=== PATIENT | female | born 1950 | race Caucasian/White ===

== ENCOUNTER 2017-08-02 07:10 | Emergency (ER) | payer OTHER ==
[~2017-08-02] VITALS: Ht 170.2 cm; Wt 89.4 kg
--- NOTE | ~2017-08-02 | EKG ---
[place] [address] [facility] [place] [address] ELECTROCARDIOGRAM REPORT Name: TOMMY RYAN [id number] Admission: 08/02/17 Attend Phys: Discharge: 08/02/17 Date of : 46 Report #: [id number] THIS REPORT FOR: //name// [facility] ED Test Date: 2017-08-02 Test Time: 07:50:38 Pat Name: TOMMY RYAN Department: Room: Gender: F Wrapping Checker: HOLLI : 1950 Requested By: Armando Sorensen Order Number: [id number] MD: Johny Davis Measurements Intervals [place] Rate: 77 P: 54 CO: 181 QRS: -8 QRSD: 88 T: 7 QT: 383 QTc: 434 Interpretive Statements Sinus rhythm Borderline T abnormalities, anterior leads Baseline wander in lead(s) V4 Compared to ECG 06/14/2014 14:47:19 No significant change was found Electronically Signed On 08-02-2017 14:25:39 [employer] TECHNICIAN by Johny Davis [email or web address] <ELECTRONICALLY SIGNED> By: Johny Davis MD, [facility] 08/02/17 1425 0750 0750 Johny Davis MD, [facility] /EPI
[~2017-08-02 07:10] MED LIST: ALDACTONE50 MG PO; ASA5UEC PO; ATENOLOL 100MG100 MG PO; METFORMIN HCL500 MG PO; NORCO 5-325 TA1 EACH PO; PRILOSEC20 MG PO; PRINIVIL20 MG PO; TRILIPIX135 MG PO; VITAMIN D3 PO; VITAMIN E400 UNIT PO; ZOCOR20 MG PO; ZOFRAN ODT4 MG PO
[2017-08-02] MEDS ORDERED: REGLAN 10 MG TA10 MG PO (07:34)
[2017-08-02 07:57] LABS: HEMATOCRIT 38.4 % (37.0-47.0); HEMOGLOBIN 12.7 gm/dL (12.0-15.0); MCH 29.5 pg (26.0-34.0); MCHC 33.1 g/dL (28.0-37.0); MCV 89.1 fL (80.0-100.0); PLATELET COUNT 300 thou/uL (150-400); RBC 4.31 mil/uL (4.20-5.00); RDW 13.1 % (10.5-14.5); WBC 6.5 thou/uL (4.0-11.0)
[2017-08-02 07:58] LABS: MANUAL DIFF YES
[2017-08-02 08:07] LABS: ANION GAP 10 mmol/L (7-16); BUN 21 mg/dL (7-18); CALCIUM 9.4 mg/dL (8.5-10.1); CHLORIDE 99 mmol/L (98-107); CO2 26 mmol/L (21-32); CREATININE 1.3 mg/dL (0.6-1.0); GLUCOSE 138 mg/dL (74-106); POTASSIUM 4.2 mmol/L (3.5-5.1); SODIUM 135 mmol/L (136-145)
[2017-08-02 08:15] LABS: TROPONIN-I < 0.04 ng/mL (<0.06)
[2017-08-02 08:16] LABS: URINE BILIRUBIN NEGATIVE (Negative); URINE BLOOD NEGATIVE (Negative); URINE COLOR YELLOW; URINE GLUCOSE-RANDOM* NEGATIVE (Negative); URINE KETONES NEGATIVE (Negative); URINE LEUKOCYTES-REFLEX NEGATIVE (Negative); URINE PROTEIN (DIPSTICK) NEGATIVE (Negative); URINE SPECIFIC GRAVITY <= 1.005 (1.003-1.035); URINE UROBILINOGEN 0.2 E.U./dl (0.2-1.0)
[2017-08-02 08:33] LABS: ABSOLUTE NEUTROPHILS 2.4 thou/uL (1.4-8.2); ATYPICAL LYMPHS 6 %; TOTAL CELL COUNT 100
[2017-08-02 08:34] LABS: ANISOCYTOSIS SLIGHT
[2017-08-02] MEDS ORDERED: SENNA-DOCUSATE1 EACH PO (10:38)
[2017-08-02] MEDS ORDERED: NAPROSYN500 MG PO (10:38)
[2017-08-02] MEDS ORDERED: NORCO 5-325 TA1 EACH PO (10:38)
== END 2017-08-02 10:49 | disposition home or self-care (01) ==
LOC: ER 07:10
PROVIDERS: Emergency Medicine
DX: I10 Essential (primary) hypertension (principal); K21.9 Gastro-esophageal reflux disease without esophagitis; E78.5 Hyperlipidemia, unspecified; E78.00 Pure hypercholesterolemia, unspecified; E11.9 Type 2 diabetes mellitus without complications; Z90.710 Acquired absence of both cervix and uterus; Z87.442 Personal history of urinary calculi; Z88.8 Allergy status to other drugs, medicaments and biological substances

== ENCOUNTER → 2017-08-19 | Outpatient (CLI) | payer OTHER ==
[~2017-08-19] MED LIST changes: +NAPROSYN500 MG PO; +REGLAN 10 MG TA10 MG PO; +SENNA-DOCUSATE1 EACH PO
== END ==
LOC: RAD 00:32
DX: Z12.31 Encounter for screening mammogram for malignant neoplasm of breast (principal)

== ENCOUNTER → 2018-08-20 | Outpatient (CLI) | payer OTHER | LOC: RAD 01:24 | DX: Z12.31 Encounter for screening mammogram for malignant neoplasm of breast (principal) ==

== ENCOUNTER → 2018-08-24 | Outpatient (CLI) | payer OTHER | LOC: ULTRA 10:32 | DX: N63.23 Unspecified lump in the left breast, lower outer quadrant (principal) ==

== ENCOUNTER → 2019-03-21 | Outpatient (CLI) | payer OTHER | LOC: ULTRA 01:14 | DX: N60.02 Solitary cyst of left breast (principal); Z88.8 Allergy status to other drugs, medicaments and biological substances ==

== ENCOUNTER → 2019-08-10 | Outpatient (CLI) | payer OTHER ==
[~2019-08-10] VITALS: Ht 170.2 cm; Wt 86.2 kg
[~2019-08-10] MED LIST changes: +ASA81BEC PO; +JARDIANCE10 MG PO; +OMEPRAZOLE40 MG PO; +VITAMIN D22000 UNIT PO
--- NOTE | 2019-08-11 20:06 | PATH ---
[facility] [place] [address] PATHOLOGY RPT PROCEDURE Name: ROSALIND RYAN I Room #: [facility] M.R.#: [id number] Admission: 08/10/19 Date of : 46 Discharge: Report #: [id number] Path Case #: [id number] [facility] Accession Number: [id number] . 01 Material submitted: . PART A: ileo-cecal valve - POLYP AT ILEOCECAL VALVE X2 PART B: colon - POLYP AT DESCENDING COLON X2. Modifiers: descending PART C: colon - POLYP AT SIGMOID X2. Modifiers: sigmoid . 01 Clinical history: . Screening . 02 Diagnosis: A. Polyp x2, ileocecal valve, endoscopic biopsy: - Inflammatory polyps with reactive hyperplastic changes. - Negative for dysplasia. . B. Polyp x2, at descending colon, endoscopic biopsy: - Inflammatory polyps with reactive hyperplastic changes. - Negative for dysplasia. . C. Polyp x2, at sigmoid, endoscopic biopsy: - Inflamed hyperplastic polyps. - Negative for dysplasia or malignancy. (IUV:sujata; 08/11/2019) QMS 08/11/2019 1330 Local . 02 Electronically signed: . Amalia Bills MD, Pathologist NPI- [id number] . 01 Gross description: . A. Received in formalin labeled "Valencia, Rosalind, polyp at ileo-cecal valve," and additionally labeled on the requisition as "x2," are 5 segments of mcintosh soft tissue measuring 1.0 x 0.9 x 0.4 cm in aggregate dimensions and ranging from 0.3 to 0.5 cm in maximum dimension. The specimen is submitted entirely in cassette A1. . B. Received in formalin labeled "Valencia, Rosalind, polyp at descending colon," and additionally labeled on the requisition as "x2," are 3 segments of mcintosh soft tissue measuring 0.9 x 0.9 x 0.3 cm in aggregate dimensions and ranging from 0.3 to 0.5 cm in maximum dimension. The specimen is submitted entirely in cassette B1. . C. Received in formalin labeled "Valencia, Rosalind, polyp at sigmoid colon," and additionally labeled on the requisition as "x2," is a 1.0 x 0.8 x 0.5 cm polypoid piece of mcintosh soft tissue. The margin is inked and [address] [address] PATHOLOGY RPT PROCEDURE Name: ROSALIND RYAN I Room #: [facility] Maggie#: [id number] Admission: 08/10/19 Date of : 46 Discharge: Report #: [id number] Path Case #: [id number] the tissue is sectioned perpendicular to the margin and submitted entirely in cassette C1. Additionally received in the same container are 2 segments of mcintosh soft tissue measuring 0.8 x 0.3 x 0.2 cm in aggregate dimensions and ranging from 0.3 to 0.5 cm maximum dimensions. The specimen is submitted entirely in cassette C2. (TSD; 08/10/2019) TOB/TOB 08/10/2019 1950 Local . 02 Pathologist provided ICD-10: K63.5 . 02 CPT . 690504, 312354, 615280 Specimen Comment: A courtesy copy of this report has been sent to [phone] Specimen Comment: [phone] Specimen Comment: Report sent to / DR PHELAN Performed at: 01 [facility] [address] [place] [address], [place] [id number] MD Bon Machado MD Phone: [phone] Performed at: [address] [id number] MD Amalia Bills MD Phone: [phone]
--- NOTE | 2019-08-15 11:57 | P ---
[facility] [address] [place] [address] PROCEDURE REPORT Name: TOMMY RYAN I Room #: [facility].#: [id number] Admission: 08/10/19 Attend Phys: Jean-Paul Cheng Discharge: Date of : 46 Report #: [id number] THIS REPORT FOR: //name// CC: Jean-Paul Kern MD DATE OF SERVICE: 08/10/2019 PROCEDURE PERFORMED: Colonoscopy with polypectomies. HISTORY OF PRESENT ILLNESS: The patient is a 69-year-old female who presents today for routine screening colonoscopy, last colonoscopy 10 years ago and reportedly normal. She denies any symptoms. No family history of colon cancer. DESCRIPTION OF PROCEDURE: The risks and benefits of the procedure were explained to the patient, those risks including but not limited to bleeding, perforation and the risk of sedation. She understood these risks and gave informed consent. Sedation was given using propofol per anesthesia. Next, a digital rectal exam was initially performed, which was normal. Next, using a standard Olympus colonoscope, the scope was placed in the patient's anus and advanced under direct vision to the cecum. The overall prep was good. The cecum was normal in appearance. On the ileocecal valve, two 4-5 mm sessile polyps were noted. These were removed by cold forceps. The ascending and transverse colon were normal. In the descending colon, two 4 mm sessile polyps were also noted and removed by cold forceps. In the sigmoid colon, a few scattered diverticula were noted also, two more polyps were noted. The smaller was 4 mm, removed by cold forceps and the larger was 6 mm and removed by snare cautery. The rectal mucosa was normal. On retroflexion, small nonbleeding internal hemorrhoids were noted, otherwise normal colonoscopy. The scope was then withdrawn and the procedure terminated. The patient tolerated the procedure well. IMPRESSION: 1. Multiple colonic polyps as described above. 2. Sigmoid diverticulosis. 3. Internal hemorrhoids. 4. Otherwise, normal colonoscopy. RECOMMENDATIONS: 1. Await biopsy results. 2. Repeat colonoscopy in [address] [address] PROCEDURE REPORT Name: CONNORTOMMY I [facility] [id number] Admission: 08/10/19 Attend Phys: Jean-Paul Cheng Discharge: Date of : 46 Report #: [id number] Thank you for allowing me to participate in her care. <ELECTRONICALLY SIGNED> By: Jean-Paul Burnham MD 08/15/19 1157 1043 1112 Jean-Paul Burnham MD /nt
== END | disposition home or self-care (01) ==
LOC: GI 08:21
DX: Z12.11 Encounter for screening for malignant neoplasm of colon (principal); K51.40 Inflammatory polyps of colon without complications; K57.30 Diverticulosis of large intestine without perforation or abscess without bleeding; K64.8 Other hemorrhoids; I10 Essential (primary) hypertension; E78.00 Pure hypercholesterolemia, unspecified; K21.9 Gastro-esophageal reflux disease without esophagitis; E11.9 Type 2 diabetes mellitus without complications; Z98.890 Other specified postprocedural states; Z79.899 Other long term (current) drug therapy; Z90.710 Acquired absence of both cervix and uterus; Z90.49 Acquired absence of other specified parts of digestive tract; Z87.19 Personal history of other diseases of the digestive system; Z88.8 Allergy status to other drugs, medicaments and biological substances; Z79.82 Long term (current) use of aspirin
CPT/HCPCS: 62110; 62900

== ENCOUNTER → 2020-04-10 | Outpatient (CLI) | payer OTHER | LOC: RAD 12:48 | PROVIDERS: ATTEND Family Medicine | DX: Z12.31 Encounter for screening mammogram for malignant neoplasm of breast (principal) ==

== ENCOUNTER → 2021-05-08 | Outpatient (CLI) | payer OTHER | LOC: BC 12:26 | PROVIDERS: ATTEND Family Medicine | DX: Z12.31 Encounter for screening mammogram for malignant neoplasm of breast (principal); N64.89 Other specified disorders of breast ==